=== PATIENT | female | born 1935 ===

== ENCOUNTER 2020-01-29 16:30 | Outpatient (CLI) | payer MEDICARE ==
[2020-01-29 16:48] LABS: INR 3.64 (0.87-1.13)
== END 2020-01-29 16:31 | disposition home or self-care (01) ==
LOC: LAB 16:30
PROVIDERS: ATTEND Family Medicine
DX: I82.409 Acute embolism and thrombosis of unspecified deep veins of unspecified lower extremity (principal)
CPT/HCPCS: 36415; 85610